=== PATIENT | female | born 1950 | race Caucasian/White ===

== ENCOUNTER 2019-04-29 07:44 | Day surgery (SDC) | payer MEDICARE, OTHER, SELFPAY ==
[2019-04-26 10:41] VITALS: BMI 37.4
--- NOTE | 2019-04-26 10:47 | ECG_ITS ---
Measurements Intervals [place] Rate: 42 P: -35 [place]: 176 QRS: -32 QRSD: 143 T: 113 QT: 517 QTc: 437 SINUS BRADYCARDIA MARKED LEFT AXIS DEVIATION [QRS AXIS < -30] LEFT BUNDLE BRANCH BLOCK [120+ ms QRS DURATION, 80+ ms Q/S IN V1/V2, 85+ ms R IN I/ I/aVL/V5/V6] No previous ECG available for comparison Electronically Signed On 04-26-2019 14:16:39 MEASURING CLERK by Dhruv Herbert M.D. [email or web address]
--- NOTE | 2019-04-26 11:26 | ANES.PREANE2 ---
Pre-Anesthetic Assessment Pre-Anesthetic Assessment: Height/Weight: Height 1.65 m Weight 102.058 kg Preop Diagnosis: Incisional hernia Proposed Procedure: Operation Date: 04/29/19 09:30 Proposed Procedures p Laparoscopic Incisional Hernia Repair 65165 K43.2(Not Applicable) - Pb Gutierrez MD Familial anesthetic complications: hard time waking up appropriately after anesthesia Social: Social History: No alcohol and No tobacco Exam: Pre-Anes Outpt Exam: alert, oriented x 3, clear to auscultation bilaterally and regular rate & rhythm Airway: Cervical ROM: WNL MP: 1 Dentition: Full Pulmonary: Pulmonary: Sleep apnea (CPAP) CV/HEM: CV/HEM: HTN (On several medications (200s/100s during prior to a previous surgery which required cancellation of surgery)) and Murmur Comments: Regurge of a valve - but she's not sure which one - no chest pain, SOB, syncope Her angiogram revealed no blockages LBBB : : None reported Hepatic: Hepatic: None reported GI: GI: GERD Metabolic: Metabolic: DM Comments: diet controlled Musc/skel: Musc/skel: None reported Neuropsych: Neuropsych: None reported Anesthetic Plan: ASA status: 2 Anesthesia: General Risk of > 500 ml blood loss (7ml/kg in children): No PFSH Anesthesia PFSH: Medical History (Updated 04/26/19 @ 10:48 by Elina Del Castillo) Diabetes SHANE (generalized anxiety disorder) GERD (gastroesophageal reflux disease) Hyperlipidemia Hypertension Hypokalemia YEE (obstructive sleep apnea) Recurrent incisional hernia Surgical History History of appendectomy (~2012) History of bladder repair surgery History of hysterectomy History of incisional hernia repair History of inguinal hernia repair (~2013) Social History Smoking and tobacco status: never smoked Alcohol intake: never History of recent travel: No Data Anesthesia Cardiac Studies: No Data to Display
[2019-04-29] VITALS (20 sets, daily range): BP systolic 80–142; BP diastolic 41–82; PULSE 44–58; RESP 12–22; TEMP 36.2–36.8; O2SAT 94–99
[2019-04-29 08:04] LABS: Glucose Point of Care 129 mg/dL (70-110)
--- NOTE | 2019-04-29 08:29 | P.ANESUD_ITS ---
Pre-Anesthetic Update Pre-Anesthetic Assessment: Date of Surgery/Procedure: 04/29/19 Preop Nimisha gnosis: incisional hernia Proposed Procedure: Operation Date: 04/29/19 09:30 Proposed Procedures p Laparoscopic Incisional Hernia Repair 04415 K43.2(Not Applicable) - Pb Gutirerez MD Last Intake: Intake Last Liquid Date 04/28/19 Last Liquid Time 19:30 Last Solid Date 04/28/19 Last Solid Time 19:30 Labs Last 48hrs: Laboratory Results - last 48 hr 04/29/19 08:01 POC Glucose 129 Vitals: Temperature 97.5 F L 04/29/19 07:53 Temperature Source Tympanic 04/29/19 07:53 Pulse Rate 58 L 04/29/19 07:53 Pulse Rhythm 04/29/19 07:49 Pulse Strength 0+ Absent 04/29/19 07:49 Respiratory Rate 18 04/29/19 07:53 Blood Pressure 128/63 04/29/19 07:53 Blood Pressure Nishi n 84 04/29/19 07:53 Pulse Oximetry 97 04/29/19 07:53 Oxygen Delivery Me thod 04/29/19 07:53 Cardiac Studies: No Data to Display
--- NOTE | 2019-04-29 08:30 | W.PM.OPSUD ---
Surgery/Procedure H&P Update DATE OF PROCEDURE: April 29, 2019 DATE H&P PERFORMED: 04/23/19 H&P UPDATE INFORMATION: I have reviewed H&P completed within last 30 days and No changes to prior documentation PREOP DIAGNOSIS: incisional hernia PLANNED PROCEDURE: Operation Date: 04/29/19 09:30 Proposed Procedures p Laparoscopic Incisional Hernia Repair 12755 K43.2(Not Applicable) - Pb Gutierrez MD
[2019-04-29] MEDS: sodium chloride 0.9% 1,000 ML 30 ML IV (08:41)
[2019-04-29] MEDS: vancomycin 1,000 MG in sodium chloride 0.9% 250 ML 250 MG IV (08:41)
--- NOTE | 2019-04-29 10:41 | P.OP_ITS ---
Operative Report Date of procedure: April 29, 2019 Pre-op Diagnosis: incisional hernia Post-op diagnosis: same Procedure Done: Laparoscopic lysis of adhesions for 45 minutes Laparoscopic repair of recurrent incisional hernia with Proceed mesh measuring 20 x 15 cm Pathology: none sent Surgeon: Pb Gutierrez Anesthesia: General Condition: stable Disposition: PACU Procedure: The patient was taken to the operating room and intubated under general anesthesia after IV antibiotic had been administered. The abdomen was prepped and draped in a sterile manner. Using 15 blade, a left upper quadrant incision was made and using a Verres needle pneumoperitoneum was created and using Optiview technique, 12 mm port was placed and 10 mm 30 degree scope was introduced after 15 mm of pneumoperitoneum was created. 2 separate 5 mm ports were placed in the right upper quadrant and in the left lower quadrant under direct visualization. The omentum was adherent to the abdominal wall and multiple small bowel loops were adherent around the hernia defect in the right lower quadrant. Using combination of electrocautery and scissors lysis of adhesions was performed for 45 minutes until all the small bowel loops as well as the omentum adherent to the abdominal wall which was adherent to the existing mesh was taken down identifying multiple defects along the open appendectomy scar which measured 12 x 6 cm. 20 x 15 cm Proceed mesh was introduced into the peritoneal cavity after transfascial 2-0 [place] sutures were placed at the 4 corners and the mesh was pulled against the abdominal wall using sutures and held in place with secure straps placed a centimeter apart as an inner and outer gambell to ensure adequate coverage of the hernia defects. Trans-fascial sutures were tied down and cut. 20 cc of saline, 20 cc of 0.5% Marcaine, 20 cc of Exparel was mixed together and injected under laparoscopic visualization for a TAP block. All ports were removed under direct visualization. The fascia at the 12 mm port site was closed using [id number] 0 Vicryl suture, s ubcutaneous tissues approximated using 3-0 Vicryl suture and skin was closed using running subcuticular 4-0 Monocryl suture at all the port sites and covered with surgical glue. An abdominal binder was placed and the patient was transferred to recovery room in stable condition.
--- NOTE | 2019-04-29 12:28 | SUR.PHASEI ---
1226 PATIENT TO PACU AT THIS TIME. RR EVEN AND UNLABORED. PWD. SPO2 98% ON SIMPLE MASK AT 8L. 3 INCISIONS TO ABDOMEN, CLOSED WITH EXOFIN AND ABD BINDER. PATIENT NOTED TO BE SLEEPING, PROTECTING AIRWAY.
[2019-04-29] MEDS: fentaNYL 50 mcg/mL INJ 2mL IVP ×2 (12:50→12:56)
[2019-04-29] MEDS: morphine 4 mg/mL SDV 1 mL 2 MG IVP ×2 (13:12→13:17)
--- NOTE | 2019-04-29 13:35 | SUR.PHASEI ---
1331 PATIENT TO OPS AT THIS TIME. RR EVEN AND UNLABORED. DRESSING INTACT TO ABDOMEN, WITH ABD BINDER. TOLERATING ICE CHIPS WELL.
[2019-04-29] MEDS: HYDROcodone-acetaminophen 5-325 mg Tablet 1 TAB PO (13:48)
== END 2019-04-29 14:44 | disposition home or self-care (01) ==
LOC: OR 14:51
PROVIDERS: PCP Family Medicine; Visit Provider Surgery
PROC: 0WQF4ZZ Repair Abdominal Wall, Percutaneous Endoscopic Approach (ICD-10-PCS; CPT 49654; principal; 2019-04-29 09:30)
DX: K43.2 Incisional hernia without obstruction or gangrene (principal); I10 Essential (primary) hypertension; G47.30 Sleep apnea, unspecified; E11.9 Type 2 diabetes mellitus without complications; F41.9 Anxiety disorder, unspecified; K21.9 Gastro-esophageal reflux disease without esophagitis; G47.33 Obstructive sleep apnea (adult) (pediatric)
CPT/HCPCS: 49654; 12345; 36416; 82962; 93005; 96365; C9290; J1100; J2001; J2270; J2405; J2704; J2710; J3010; J3370; J3490; J7030; J7050